=== PATIENT | female | born 1980 | race African-American/Black ===

== ENCOUNTER 2017-04-20 10:55 | Emergency (ER) | payer MEDICAID, OTHER ==
[~2017-04-20] VITALS: Ht 167.6 cm; Wt 87.0 kg
[2017-04-20] MEDS ORDERED: ALBU18HF2 IH (11:06)
[2017-04-20] MEDS ORDERED: IPRATROPIUM BROMIDE (0.02%) 0.5MG/2.5ML NEB HHN STA (11:39)
[2017-04-20] MEDS ORDERED: ALBUTEROL (0.083%) 2.5MG/3ML NEB HHN STA (11:39)
[2017-04-20] MEDS ORDERED: PREDNISONE 20MG TABLET PO STA (11:39)
[2017-04-20 11:44] VITALS: BP 128/61
== END 2017-04-20 12:40 | disposition home or self-care (01) ==
LOC: ER 11:16
DX: J45.901 Unspecified asthma with (acute) exacerbation (principal)
CPT/HCPCS: 94640; 99283; J7512; J7611; Z7610